=== PATIENT | male | born 1985 | race Caucasian/White ===

== ENCOUNTER 2017-03-22 16:03 | Emergency (ER) | payer MEDICAID ==
[~2017-03-22] VITALS: Ht 185.4 cm; Wt 123.4 kg
[2017-03-22] MEDS ORDERED: VENLAFAXINE HCL25 MG ORAL (16:16)
[2017-03-22] MEDS ORDERED: LISINOPRIL40 MG ORAL ×2 (16:16→16:30)
[2017-03-22] MEDS ORDERED: CLONIDINE HCL0.3 MG PO (16:16)
[2017-03-22] MEDS ORDERED: XANAX0.5 MG ORAL ×2 (16:16→16:30)
[2017-03-22] MEDS ORDERED: BUPROPION XL300 MG ORAL ×2 (16:16→16:30)
[2017-03-22] MEDS ORDERED: Venlafaxine XR 150mg cap ORAL ONE (16:30)
[2017-03-22] MEDS ORDERED: EFFEXOR XR150 MG ORAL (16:30)
[2017-03-22] MEDS ORDERED: LORazepam 1mg tab ORAL ONE (16:30)
[2017-03-22 16:45] VITALS: BP 147/80
--- NOTE | 2017-03-22 18:47 | Emergency Room Report ---
History of Present Illness General Chief Complaint: General Complaint Source: Patient Present Illness HPI The patient is a 31-year-old male with a history of hypertension, depression and anxiety presenting for medication refill. He states that he ran out of medications 3 days prior and symptoms of anxiety have been getting worse. He states that his insurance recently changed and has not been able to followup with his primary doctor. He states that he has had these diagnoses for the past 10 years and has not had recent change of medications. He is feeling anxious and denies other symptoms including N, V, F, chills, SOB, CP, dizziness , SI Allergies: Coded Allergies: No Known Allergies (Unverified , 03/22/17) Patient History Past Medical History: see triage record Pertinent Family History: none Reviewed Nursing Documentation: PMH: Agreed, PSxH: Agreed Nursing Documentation-PMH Hx Hypertension: Yes History Of Psychiatric Problem: Yes - Generalized Anxiety D/O, PTSD, Social Phobia Review of Systems All Other Systems: negative except mentioned in HPI Physical Exam Vital Signs Date Time Temp Pulse Resp B/P (MAP) Pulse Ox O2 Delivery O2 Flow Rate FiO2 03/22/17 16:08 97.9 116 20 143/84 98 Room Air Sp02 EP Interpretation: reviewed, normal General Appearance: no apparent distress, alert, GCS 15, non-toxic Head: normocephalic, atraumatic Eyes: bilateral eye normal inspection, bilateral eye PERRL ENT: hearing grossly normal, normal pharynx, no angioedema, normal voice Neck: full range of motion, supple/symm/no masses Respiratory: chest non-tender, lungs clear, normal breath sounds, speaking full sentences Cardiovascular #1: no edema, tachycardia - initially Musculoskeletal: back normal, gait/station normal, normal range of motion, non- tender Neurologic: alert, oriented x3, responsive, motor strength/tone normal, sensory intact, speech normal Psychiatric: judgement/insight normal, memory normal, no suicidal/homicidal ideation, anxious Skin: normal color, no rash, warm/dry, well hydrated Lymphatic: no adenopathy Medical Decision Making PA Attestation Dr. Collins is my supervising physician. Patient management was discussed with my supervising physician Diagnostic Impression: Primary Impression: Anxiety Additional Impressions: Depression Qualified Codes: F32.9 - Major depressive disorder, single episode, unspecified Medication refill ER Course The patient is a 31-year-old male with a history of hypertension, depression and anxiety presenting for medication refill Differential diagnoses considered but not limited to suicidal ideation, homicidal ideation, depression, anxiety, depression, among others PE: Initially tachycardic. Mildly anxious HEENT exam is unremarkable RRR Lungs are clear to auscultation bilaterally. No respiratory distress He is given ativan and his antidepressant and HR has normalized. The patient is given refill of his mediations and information [facility]. He will go there for further evaluation and treatment until he can establish a PMD. ER precautions given Last Vital Signs Date Time Temp Pulse Resp B/P (MAP) Pulse Ox O2 Delivery O2 Flow Rate FiO2 03/22/17 16:45 97.9 70 18 147/80 100 Room Air Status: improved Disposition: HOME, SELF-CARE Condition: Improved Scripts Alprazolam* (XANAX*) 0.5 Mg Tablet 0.5 MG ORAL TID Y for PRN Agitation/Anxiety, #10 TAB 0 Refills Prov: JUDIE DANIEL P.A. 03/22/17 Bupropion Hcl* (WELLBUTRIN*) 300 Mg Tab.er.24h 300 MG ORAL DAILY, #30 TAB 0 Refills Prov: TERZIANJUDIE P.A. 03/22/17 Venlafaxine Hcl* (EFFEXOR XR*) 150 Mg Cap.er.24h 150 MG ORAL DAILY, #30 CAP 0 Refills Prov: TERZIAN,JUDIE P.A. 03/22/17 Lisinopril* (LISINOPRIL*) 40 Mg Tablet 40 MG ORAL DAILY, #30 TAB Prov: TERZIANJUDIE P.A. 03/22/17 Referrals: NON PHYSICIAN (PCP) Patient Instructions: Panic Attacks, Depression, Adult Additional Instructions: I discussed my findings with the patient. All questions and concerns have been answered. Treatment and medication compliance have been addressed. I advised the patient that they need to follow up psychiatry for further treatment and evaluation. Return to ED if symptoms worsen, new symptoms arise, or if needed for any reason. Patient verbalized understanding of discharge instructions. Information for [facility] given JUDIE DANIEL Mar 22, 2017 18:47
[2017-04-03] MEDS ORDERED: BUSPIRONE HCL15 MG ORAL (21:39)
== END 2017-03-22 16:45 | disposition home or self-care (01) ==
LOC: EMR 16:30
DX: F41.9 Anxiety disorder, unspecified (principal); F32.9 Major depressive disorder, single episode, unspecified; Z76.0 Encounter for issue of repeat prescription; F43.10 Post-traumatic stress disorder, unspecified; I10 Essential (primary) hypertension
CPT/HCPCS: 99284

== ENCOUNTER → 2017-04-03 | Emergency (ER) | payer MEDICAID ==
[~2017-04-03] VITALS: Ht 182.9 cm; Wt 136.5 kg
[~2017-04-03] MED LIST: AMOXICILLIN500 MG ORAL; BUPROPION XL300 MG ORAL; BUSPAR10 MG ORAL; BUSPIRONE HCL15 MG ORAL; CATAPRES0.2 MG ORAL; CLONIDINE HCL0.3 MG PO; EFFEXOR XR150 MG ORAL; LIDOCAINE VISC100 ML TOPIC; LISINOPRIL40 MG ORAL; VENLAFAXINE HCL25 MG ORAL; WELLBUTRIN XL150 MG ORAL; XANAX0.5 MG ORAL
[2017-04-03 21:36] VITALS: BP 132/84
--- NOTE | 2017-04-03 21:40 | Emergency Room Report ---
History of Present Illness General Chief Complaint: Medication Refill Source: Patient Present Illness HPI This is a 31-year-old male with history of anxiety/panic attack. He presents with chief complaint of anxiety and needing refill on her Xanax. He said that his insurance change and he could not see his primary care anymore. He had prescription for Xanax and less than was fill was 3 months ago. He said he get that monthly. He was here earlier this month for refill and Xanax. He received 10 tablets of 0.5 mg. He was seen at another hospital on the and receive 12 tablets of 1 mg Xanax. Denies suicidal thoughts or homicidal thought. Denies any other complaint. Allergies: Coded Allergies: No Known Allergies (Unverified , 03/22/17) Patient History Past Medical History: see triage record, old chart reviewed, psych hx Past Surgical History: other Pertinent Family History: none Social History: Denies: smoking Immunizations: other Reviewed Nursing Documentation: PMH: Agreed, PSxH: Agreed Nursing Documentation-PMH Hx Hypertension: Yes History Of Psychiatric Problem: Yes - anxiety, depression, PTSD Review of Systems Eye: Denies: eye pain, blurred vision ENT: Denies: ear pain, nose congestion, throat swelling Respiratory: Denies: cough, shortness of breath Cardiovascular: Denies: chest pain, palpitations Gastrointestinal: Denies: abdominal pain, diarrhea, nausea, vomiting Musculoskeletal: Denies: back pain, joint pain Skin: Denies: rash Neurological: Denies: headache, numbness Endocrine: Denies: increased thirst, increased urine Hematologic/Lymphatic: Denies: easy bruising All Other Systems: negative except mentioned in HPI Physical Exam Vital Signs Date Time Temp Pulse Resp B/P (MAP) Pulse Ox O2 Delivery O2 Flow Rate FiO2 04/03/17 21:18 98.8 113 132/84 Room Air vitals with tachycardia Sp02 EP Interpretation: reviewed, normal General Appearance: well appearing, no apparent distress, alert Head: normocephalic, atraumatic Eyes: bilateral eye PERRL, bilateral eye EOMI ENT: hearing grossly normal, normal pharynx Neck: full range of motion, supple, no meningismus Respiratory: chest non-tender, lungs clear, normal breath sounds Cardiovascular #1: regular rate, rhythm, no murmur Gastrointestinal: normal bowel sounds, non tender, no mass, no organomegaly, no bruit, non-distended Musculoskeletal: back normal, gait/station normal, normal range of motion Psychiatric: mood/affect normal Skin: warm/dry Medical Decision Making Diagnostic Impression: Primary Impression: Anxiety ER Course Patient said that he was getting Xanax chronically for 10 years. Because of insurance change he could not see his doctor any more. He said that he get his medication from [facility] pharmacy. On the [facility] system, there was only 2 prescription for the last year. And it was recently in this month. I confirm several time that he get his prescription through [facility]. I called the [facility] 24- hour pharmacy. They do not have him in the system prior to the last 2 prescription. He did not get any Xanax prior to this month. This is the center system that is throughout the [place]. Because of his inconsistency, I would not refill any Xanax for him. It is highly addictive. I will prescribe BuSpar instead. Last Vital Signs Date Time Temp Pulse Resp B/P (MAP) Pulse Ox O2 Delivery O2 Flow Rate FiO2 04/03/17 21:18 98.8 113 132/84 Room Air Status: unchanged Disposition: HOME, SELF-CARE Condition: Stable Scripts Buspirone Hcl* (BUSPIRONE HCL*) 15 Mg Tablet 15 MG ORAL TWICE A DAY, #30 TAB 0 Refills Prov: BETTE HARO M.D. 04/03/17 Additional Instructions: Followup with your DrChavez for refill your medication. Followup within a week. Return if symptom worsen. BETTE HARO M.D. Apr 03, 2017 21:40
== END | disposition home or self-care (01) ==
LOC: EMR 21:28
DX: F41.9 Anxiety disorder, unspecified (principal); F43.10 Post-traumatic stress disorder, unspecified; F32.9 Major depressive disorder, single episode, unspecified
CPT/HCPCS: 99283

== ENCOUNTER 2017-04-07 01:43 | Emergency (ER) | payer MEDICAID ==
[~2017-04-07] VITALS: Ht 182.9 cm; Wt 136.1 kg
[~2017-04-07 01:43] MED LIST changes: -AMOXICILLIN500 MG ORAL; -BUSPAR10 MG ORAL; -CATAPRES0.2 MG ORAL; -LIDOCAINE VISC100 ML TOPIC; -WELLBUTRIN XL150 MG ORAL
[2017-04-07 02:00] VITALS: BP 132/80
--- NOTE | 2017-04-07 02:08 | Emergency Room Report ---
History of Present Illness General Chief Complaint: Toothache Source: Patient Present Illness HPI Patient with L lower tooth ache. Had a root canal which went bad and the temporary was removed. Gum has grown over. Also second tooth with chip and tender. No fevers. Has been taking advil and sudafed. Pain is 9/10, aching, constant, some radiation to jaw. No neck pain. No NVD, cough, sore throat, neck pain, rashes, NVD, change in bowels/urine. Was seen here for anxiety twice. States Clonidine helps with this. States Xanax has been helping. Allergies: Coded Allergies: No Known Allergies (Unverified , 03/22/17) Patient History Past Medical History: see triage record Social History: Denies: smoking Social History N[employer]ative [employer] in [place] Reviewed Nursing Documentation: PMH: Agreed, PSxH: Agreed Nursing Documentation-PM Past Medical History: No History, Except For Hx Hypertension: Yes Hx Neurological Problems: No - Scheuermann's disease Review of Systems All Other Systems: negative except mentioned in HPI Physical Exam Vital Signs Date Time Temp Pulse Resp B/P (MAP) Pulse Ox O2 Delivery O2 Flow Rate FiO2 04/07/17 01:48 98.1 90 16 142/83 99 Room Air General Appearance: well appearing, no apparent distress Head: normocephalic, atraumatic ENT: hearing grossly normal, normal voice, other - carious teeth, second molar , also lower K9 L Neck: full range of motion, supple Respiratory: no respiratory distress, speaking full sentences Gastrointestinal: overweight Musculoskeletal: digits/nails normal, gait/station normal, normal range of motion Neurologic: alert, normal gait, grossly normal Psychiatric: mood/affect normal Skin: no rash Medical Decision Making Diagnostic Impression: Primary Impression: Toothache Additional Impression: Dental abscess ER Course Patient with tooth pain. Ddx: dental abscess, toothache. Exam c/w dental abscess. Needs antibiotics and analgesics. Patient states not asking for pain rx. - states ibuprofen helping pain. Requests abx. Also asks for refill of clonidine. Patient stable for outpatient observation and treatment. Needs to f/u with dentist. Last Vital Signs Date Time Temp Pulse Resp B/P (MAP) Pulse Ox O2 Delivery O2 Flow Rate FiO2 04/07/17 02:25 98.1 78 16 132/80 98 Room Air Status: improved Disposition: HOME, SELF-CARE Condition: Improved Scripts Clonidine Hcl* (CATAPRES*) 0.2 Mg Tablet 0.2 MG ORAL BEDTIME, #10 TAB Prov: Christiano Coleman M.D. 04/07/17 Lidocaine HCl 2% Viscous (Lidocaine HCl 2% Viscous) 100 Ml Solution 1 APPLIC TOPIC QID Y for For Pain, #10 ML Prov: Christiano Coleman M.D. 04/07/17 Amoxicillin* (AMOXIL*) 500 Mg Capsule 500 MG ORAL THREE TIMES A DAY, #21 CAP Prov: Christiano Coleman M.D. 04/07/17 Christiano Coleman M.D. Apr 07, 2017 02:08
[2017-04-07] MEDS ORDERED: AMOXICILLIN500 MG ORAL (02:11)
[2017-04-07] MEDS ORDERED: CATAPRES0.2 MG ORAL (02:11)
[2017-04-07] MEDS ORDERED: LIDOCAINE VISC100 ML TOPIC (02:11)
[2017-04-07 02:25] VITALS: BP 132/80
== END 2017-04-07 02:25 | disposition home or self-care (01) ==
LOC: EMR 02:11
DX: K04.7 Periapical abscess without sinus (principal); I10 Essential (primary) hypertension; M42.00 Juvenile osteochondrosis of spine, site unspecified
CPT/HCPCS: 99283

== ENCOUNTER 2017-04-21 21:40 | Emergency (ER) | payer MEDICAID ==
[~2017-04-21] VITALS: Ht 183.5 cm; Wt 136.1 kg
[~2017-04-21 21:40] MED LIST changes: +AMOXICILLIN500 MG ORAL; +CATAPRES0.2 MG ORAL; +LIDOCAINE VISC100 ML TOPIC
[2017-04-21] MEDS ORDERED: WELLBUTRIN XL150 MG ORAL (21:58)
[2017-04-21 22:00] VITALS: BP 155/84
[2017-04-21] MEDS ORDERED: BUSPAR10 MG ORAL (22:14)
--- NOTE | 2017-04-21 22:15 | Emergency Room Report ---
History of Present Illness General Chief Complaint: General Complaint Source: Patient Present Illness HPI Is a 31-year-old male who has a history of anxiety and used to get Ativan and OxyContin from Dr. Busby. his prescriptions are dated from [id number]. He is here for refill. He complaining of anxiety attack. Is a chronic issue. Since March he asked for prescription for Xanax and Ativan. Is from different doctors. No suicidal thought homicidal thought. 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 Review of Systems Eye: Denies: eye pain, blurred vision ENT: Denies: ear pain, nose congestion, throat swelling Respiratory: Denies: cough, shortness of breath Cardiovascular: Denies: chest pain, palpitations Gastrointestinal: Denies: abdominal pain, diarrhea, nausea, vomiting Musculoskeletal: Denies: back pain, joint pain Skin: Denies: rash Neurological: Denies: headache, numbness Endocrine: Denies: increased thirst, increased urine Hematologic/Lymphatic: Denies: easy bruising All Other Systems: negative except mentioned in HPI Physical Exam Vital Signs Date Time Temp Pulse Resp B/P (MAP) Pulse Ox O2 Delivery O2 Flow Rate FiO2 04/21/17 21:52 99.3 100 18 155/84 98 Room Air vitals normal for high blood pressure Sp02 EP Interpretation: reviewed, normal General Appearance: well appearing, no apparent distress, alert Head: normocephalic, atraumatic Eyes: bilateral eye PERRL, bilateral eye EOMI ENT: hearing grossly normal, normal pharynx Neck: full range of motion, supple, no meningismus Respiratory: chest non-tender, lungs clear, normal breath sounds Cardiovascular #1: regular rate, rhythm, no murmur Gastrointestinal: normal bowel sounds, non tender, no mass, no organomegaly, no bruit, non-distended Musculoskeletal: back normal, gait/station normal, normal range of motion Psychiatric: mood/affect normal Skin: warm/dry Medical Decision Making Diagnostic Impression: Primary Impression: Anxiety Additional Impression: Medication refill ER Course Patient is here for anxiety. He is resting comfortably. No evidence of any anxiety or panic attack. I told patient that I will not refill controlled substance here. Will write for BuSpar. He said that doesn't work for him. Last Vital Signs Date Time Temp Pulse Resp B/P (MAP) Pulse Ox O2 Delivery O2 Flow Rate FiO2 04/21/17 21:52 99.3 100 18 155/84 98 Room Air Status: unchanged Disposition: HOME, SELF-CARE Condition: Stable Scripts Buspirone Hcl* (BUSPAR*) 10 Mg Tablet 10 MG ORAL THREE TIMES A DAY, #30 TAB 0 Refills Prov: BETET HARO M.D. 04/21/17 Additional Instructions: Followup with your DrChavez for refill. We do not refill controlled substance here in the ER. Return if symptom worsen. BETTE HARO M.D. Apr 21, 2017 22:15
[2017-04-21 22:20] VITALS: BP 155/84
== END 2017-04-21 22:20 | disposition home or self-care (01) ==
LOC: EMR 21:50
DX: F41.9 Anxiety disorder, unspecified (principal); Z76.0 Encounter for issue of repeat prescription; I10 Essential (primary) hypertension; F17.200 Nicotine dependence, unspecified, uncomplicated
CPT/HCPCS: 99283